=== PATIENT | female | born 1965 | race Caucasian/White ===

== ENCOUNTER → 2022-09-12 06:45 | Outpatient (CLI) | payer OTHER, SELFPAY ==
--- NOTE | 2022-09-12 | DI.US.S_ITS ---
PROCEDURE: US ABDOMEN LIMITED INDICATIONS: ELEVATED LIVER ENZYMES TECHNIQUE: Real-time focused scanning was performed of the abdomen, with image documentation. COMPARISON: None. FINDINGS: Liver is enlarged measuring 18.1 cm with steatosis. No focal masses. No gallbladder stones. Wall thickness is normal measuring 2.6 mm. Common bile duct measures 2.9 mm. IMPRESSION: Hepatomegaly with steatosis. Dictated by: Donya Bah M.D. on 09/12/2022 at 12:49 Approved by: Donya Bah M.D. on 09/12/2022 at 12:50
== END ==
PROVIDERS: PCP Family Medicine; Referring Provider Family Medicine; Visit Provider Family Medicine
DX: K76.0 Fatty (change of) liver, not elsewhere classified (principal); R79.89 Other specified abnormal findings of blood chemistry
CPT/HCPCS: 76705